=== PATIENT | female | born 1945 | race Two or more races ===

== ENCOUNTER 2019-04-09 16:39 | Emergency (ER) | payer OTHER ==
[~2019-04-09] VITALS: Ht 165.1 cm; Wt 59.0 kg
[2019-04-09 16:50] VITALS: BP 108/72
--- NOTE | 2019-04-09 17:09 | NUR ---
Patient discharged to home in stable condition. Written and verbal after care instructions given. Patient verbalizes understanding of instruction.
== END 2019-04-09 17:09 | disposition home or self-care (01) ==
LOC: ER 16:48
DX: H00.015 Hordeolum externum left lower eyelid (principal); Z60.2 Problems related to living alone

== ENCOUNTER 2019-05-11 16:15 | Emergency (ER) | payer OTHER ==
[~2019-05-11] VITALS: Ht 165.1 cm; Wt 67.1 kg
[2019-05-11 16:27] VITALS: BP 125/68
--- NOTE | 2019-05-11 17:21 | NUR ---
Patient discharged to home in stable condition. Written and verbal after care instructions given. Patient verbalizes understanding of instruction.
== END 2019-05-11 17:22 | disposition home or self-care (01) ==
LOC: ER 16:21
DX: J06.9 Acute upper respiratory infection, unspecified (principal)

== ENCOUNTER 2019-05-14 11:26 | Emergency (ER) | payer OTHER ==
[~2019-05-14] VITALS: Ht 152.4 cm; Wt 71.4 kg
[2019-05-14 11:43] VITALS: BP 147/84
== END 2019-05-14 12:23 | disposition home or self-care (01) ==
LOC: ER 11:32
DX: J40 Bronchitis, not specified as acute or chronic (principal); Z60.2 Problems related to living alone

== ENCOUNTER 2019-05-26 12:20 | Emergency (ER) | payer OTHER ==
[~2019-05-26] VITALS: Ht 165.1 cm; Wt 71.2 kg
[2019-05-26 12:33] VITALS: BP 128/85
--- NOTE | 2019-05-26 12:56 | NUR ---
Patient discharged to home in stable condition. Written and verbal after care instructions given. Patient verbalizes understanding of instruction.
== END 2019-05-26 12:56 | disposition home or self-care (01) ==
LOC: ER 12:20
DX: R05 Cough (principal); R09.81 Nasal congestion; Z60.2 Problems related to living alone

== ENCOUNTER 2022-02-26 12:39 | Emergency (ER) | payer OTHER ==
[~2022-02-26] VITALS: Ht 165.1 cm; Wt 62.6 kg
[2022-02-26 12:46] VITALS: BP 114/89
--- NOTE | 2022-02-26 13:00 | NUR ---
PT SEEN BY MD AT BEDSIDE FOR EVAL
[2022-02-26] MEDS ORDERED: OFLO5DRO LEFTEYE (13:08)
--- NOTE | 2022-02-26 13:22 | NUR ---
Patient discharged to home in stable condition. Written and verbal after care instructions given. Patient verbalizes understanding of instruction. Prescription given to patient.
== END 2022-02-26 13:23 | disposition home or self-care (01) ==
LOC: ER 12:43
DX: H00.014 Hordeolum externum left upper eyelid (principal); Z60.2 Problems related to living alone; Z79.899 Other long term (current) drug therapy

== ENCOUNTER 2023-03-19 14:18 | Emergency (ER) | payer OTHER ==
[~2023-03-19] VITALS: Ht 165.1 cm; Wt 61.2 kg
[~2023-03-19 14:18] MED LIST: OFLO5DRO LEFTEYE
[2023-03-19 14:21] VITALS: BP 118/78; TEMP 98
[2023-03-19] MEDS ORDERED: SULF1TAB48 PO (14:38)
[2023-03-19] MEDS ORDERED: CEPH500C2 PO (14:38)
[2023-03-19] MEDS ORDERED: POLYVINYL ALCOHOL 15 ML BOTTLE ONE (14:47)
[2023-03-19 14:52] VITALS: O2SAT 96
[2023-03-19] MEDS ORDERED: POLYVINYL ALCOHOL 15 ML BOTTLE OP ONE (15:00)
== END 2023-03-19 14:53 | disposition home or self-care (01) ==
LOC: ER 14:18
DX: H00.014 Hordeolum externum left upper eyelid (principal)

== ENCOUNTER 2023-07-13 15:44 | Emergency (ER) | payer OTHER ==
[~2023-07-13] VITALS: Ht 167.6 cm; Wt 74.8 kg
[~2023-07-13 15:44] MED LIST changes: +CEPH500C2 PO; +SULF1TAB48 PO
[2023-07-13 15:57] VITALS: BP 121/81; TEMP 98.2
[2023-07-13] MEDS ORDERED: ERYT3.5O9 RIGHTEYE (16:03)
[2023-07-13 16:10] VITALS: O2SAT 97
== END 2023-07-13 16:10 | disposition home or self-care (01) ==
LOC: ER 15:48
DX: H01.001 Unspecified blepharitis right upper eyelid (principal); H00.11 Chalazion right upper eyelid; Z60.2 Problems related to living alone